=== PATIENT | male | born 1990 | race Two or more races ===

== ENCOUNTER → 2024-10-17 | Outpatient (BNVA) | payer OTHER, BC, SELFPAY | END | disposition home or self-care (01) | PROVIDERS: PCP Family Medicine; Referring Provider Family Medicine; Visit Provider Urology | DX: N35.919 Unspecified urethral stricture, male, unspecified site (principal); Z87.440 Personal history of urinary (tract) infections | CPT/HCPCS: 99212; G0463 ==

== ENCOUNTER → 2025-08-14 | Outpatient (BNVA) | payer BC, SELFPAY | END | disposition home or self-care (01) | PROVIDERS: PCP Family Medicine; Referring Provider Family Medicine; Visit Provider Urology | DX: N40.0 Benign prostatic hyperplasia without lower urinary tract symptoms (principal) | CPT/HCPCS: 81003; 99212; G0463 ==

== ENCOUNTER → 2025-09-18 | Outpatient (CLI) | payer BC, SELFPAY ==
[2025-09-18 11:50] LABS: Motl CLS 1 80
[2025-09-18 12:09] LABS: % Variance 4 %; % Variance Motility 6 %; Count Side 1 52; Count Side 2 50; Motl CLS 2 75; Room Temperature 24 (20-27C (Area)); Sperm Count 51 Million (20-50); Sperm Motility 77 % (>=50)
== END | disposition home or self-care (01) ==
LOC: SLDO 11:00
PROVIDERS: Referring Provider Family Medicine; Visit Provider Family Medicine
DX: N46.9 Male infertility, unspecified (principal)
CPT/HCPCS: 89310